=== PATIENT | female | born 1945 | race Caucasian/White ===

== ENCOUNTER 2020-09-27 11:30 | Inpatient (IN) | payer MEDICARE ==
[2020-09-27 13:00] LABS: BASOPHIL 0.3 % (0-2); EOSINOPHIL 1.7 % (0-7); HCT 43.9 % (37.0-47.0); LYMPHOCYTE 24.2 % (15-48); MCH 29.7 pg (25.0-31.0); MCHC 31.9 g/dL (32.0-36.0); MCV 93.2 fL (78.0-100.0); MONOCYTE 9.5 % (0-12); MPV 10.5 fL (6.0-9.5); NEUTROPHIL 63.7 % (41-80); NRBC 0; PLT 247 K/uL (150-400); RBC 4.71 M/uL (4.20-5.40); RDW 14.4 % (11.5-14.0); WBC 6.5 K/uL (4.0-10.5)
[2020-09-27 13:06] LABS: ALBUMIN 3.2 g/dL (3.4-5.0); BILIRUBIN - TOTAL 0.3 mg/dL (0.2-1.0); BUN/CREAT RATIO (CALC) 24.7 RATIO; CREATININE 0.77 mg/dL (0.51-0.95); GLOBULIN (CALCULATION) 4.2 g/dL; POTASSIUM 3.8 mmol/L (3.5-5.1); TOTAL PROTEIN 7.4 g/dL (6.4-8.2)
[2020-09-27 13:14] LABS: PRO-BNP 86 pg/mL (<450)
[2020-09-27] MEDS ORDERED: COZAAR100 MG PO (19:04)
[2020-09-27] MEDS ORDERED: ULTRAM50 MG PO (19:05)
[2020-09-27] MEDS ORDERED: TRAZODONE HCL50 MG PO (19:05)
[2020-09-27] MEDS ORDERED: LOVASTATIN40 MG PO (19:06)
[2020-09-27] MEDS ORDERED: NEURONTIN300 MG PO (19:06)
[2020-09-27] MEDS ORDERED: SYMBICORT 80-10.2 GM INH ×2 (19:06→19:07)
[2020-09-27] MEDS ORDERED: PROTONIX 40MG T40 MG PO (19:07)
[2020-09-27] MEDS ORDERED: CENTRUM SILVER1 EAC4 PO (19:07)
[2020-09-27] MEDS ORDERED: CLARITIN10 M2 PO (19:07)
[2020-09-27] MEDS ORDERED: ASPIRIN EC81 MG PO (19:08)
[2020-09-27] MEDS ORDERED: COSAMIN DS TAB1 EACH PO (19:08)
[2020-09-27] MEDS ORDERED: METAMUCIL1 DOSE PO (19:08)
[2020-09-27] MEDS ORDERED: VITAMIN B-121000 MC1 PO (19:08)
[2020-09-27] MEDS ORDERED: VOLTAREN100 GM TOP (19:09)
[2020-09-27] MEDS ORDERED: CALCIUM CITRAT250 MG PO (19:09)
[2020-09-28 04:12] LABS: BASOPHIL 0.3 % (0-2); EOSINOPHIL 0 % (0-7); HCT 42.2 % (37.0-47.0); HGB 13.8 g/dl (12.5-16.0); LYMPHOCYTE 27.7 % (15-48); MCH 29.8 pg (25.0-31.0); MCHC 32.7 g/dL (32.0-36.0); MCV 91.1 fL (78.0-100.0); MONOCYTE 2.8 % (0-12); MPV 10.3 fL (6.0-9.5); NEUTROPHIL 68.9 % (41-80); NRBC 0; PLT 252 K/uL (150-400); RBC 4.63 M/uL (4.20-5.40); RDW 14.1 % (11.5-14.0); WBC 3.9 K/uL (4.0-10.5)
[2020-09-28 04:28] LABS: BILIRUBIN - TOTAL 0.3 mg/dL (0.2-1.0); BUN/CREAT RATIO (CALC) 26.8 RATIO; CREATININE 0.56 mg/dL (0.51-0.95); GLOBULIN (CALCULATION) 4.2 g/dL; MAGNESIUM 2.4 mg/dL (1.8-2.4); PHOSPHORUS 2.9 mg/dL (2.6-4.7); POTASSIUM 4.1 mmol/L (3.5-5.1); TOTAL PROTEIN 7.2 g/dL (6.4-8.2)
--- NOTE | 2020-09-28 12:54 | NUR ---
PT LIVES AT [facility]; PLEASE ADVISE OF D/C NEEDS
[2020-10-01] MEDS ORDERED: MEDROL 4MG DOSEP4 MG PO (12:36)
== END 2020-10-01 14:53 | disposition home or self-care (01) | DRG 177 ==
LOC: FER 11:30 → FMS 15:50
PROVIDERS: Emergency Medicine; ADMIT Internal Medicine
PROC: 8E0ZXY6 Isolation (ICD-10-PCS; principal; 2020-09-27)
PROC: XW033E5 Introduction of Remdesivir Anti-infective into Peripheral Vein, Percutaneous Approach, New Technology Group 5 (ICD-10-PCS; 2020-09-28)
DX: U07.1 COVID-19 (principal); J12.89 Other viral pneumonia; J96.01 Acute respiratory failure with hypoxia; E11.9 Type 2 diabetes mellitus without complications; I10 Essential (primary) hypertension; Z66 Do not resuscitate; K21.9 Gastro-esophageal reflux disease without esophagitis; G47.33 Obstructive sleep apnea (adult) (pediatric); M19.90 Unspecified osteoarthritis, unspecified site; E78.5 Hyperlipidemia, unspecified; E66.9 Obesity, unspecified; G47.30 Sleep apnea, unspecified; Z85.828 Personal history of other malignant neoplasm of skin; Z90.710 Acquired absence of both cervix and uterus; Z90.49 Acquired absence of other specified parts of digestive tract; Z88.1 Allergy status to other antibiotic agents; Z88.0 Allergy status to penicillin; Z88.5 Allergy status to narcotic agent; Z88.8 Allergy status to other drugs, medicaments and biological substances; Z79.82 Long term (current) use of aspirin; Z79.899 Other long term (current) drug therapy
CPT/HCPCS: 36415; 36600; 71045; 71275; 80053; 82607; 82803; 82962; 83605; 83735; 83880; 84100; 84145; 84484; 85025; 85379; 87040; 94010; 94640; 94667; 94668; 94760; C9399; J0456; J1100; J1650; J7050; Q9967